=== PATIENT | male | born 1965 | race Caucasian/White ===

== ENCOUNTER 2024-05-05 06:28 | Day surgery (SDC) | payer OTHER ==
[~2024-05-05] VITALS: Ht 185.4 cm; Wt 113.4 kg
[2024-05-05 07:29] LABS: BASOPHILS # (AUTO) 0.1 K/uL (0.00-0.22); BASOPHILS % (AUTO) 0.7 % (0.0-2.0); EOSINOPHILS # (AUTO) 0.3 K/uL (0-0.4); EOSINOPHILS % (AUTO) 3.4 % (0.0-4.0); HEMATOCRIT 47.1 % (36-52); LYMPHOCYTES # (AUTO) 2.3 K/uL (2.0-11.5); LYMPHOCYTES % (AUTO) 28.8 % (20.5-51.1); MEAN CORPUSCULAR HEMOGLOBIN 31 pg (27-31); MEAN CORPUSCULAR HGB CONC 34 g/dL (33-37); MONOCYTES # (AUTO) 0.9 K/uL (0.8-1.0); MONOCYTES % (AUTO) 11.8 % (1.7-9.3); NEUTROPHILS # (AUTO) 4.4 K/uL (1.8-7.7); NEUTROPHILS % (AUTO) 55.3 % (42.2-75.2); PLATELET COUNT (AUTO) 249 K/uL (140-450); RED BLOOD CELL COUNT(AUTO) 5.18 MIL/uL (4.20-6.10); RED CELL DISTRIBUTION WIDTH 13.8 % (11.6-13.7); WHITE BLOOD COUNT (AUTO) 7.9 K/uL (4.8-10.8)
[2024-05-05 07:50] LABS: INR 1.11 (0.8-1.2); PARTIAL THROMBOPLASTIN TIME 24.9 secs (22-35.6); PROTHROMBIN TIME 11.6 secs (10.8-13.4)
[2024-05-05] MEDS ORDERED: fentaNYL citrate 0.05 MG/ML VIAL ONE (07:51)
[2024-05-05] MEDS ORDERED: KETOROLAC 30 MG/ML VIAL ONE (07:59)
[2024-05-05] MEDS: fentaNYL citrate 0.05 MG/ML VIAL IVP ONE (08:32)
[2024-05-05] MEDS: LIDOCAINE 2% 1000 MG/50 ML VIAL INJ ONE (08:33)
== END 2024-05-05 10:14 | disposition home or self-care (01) ==
LOC: MDS 06:28 → MMU 06:42 → MDS 10:14
PROVIDERS: ATTEND Internal Medicine Gastroenterology
DX: B18.2 Chronic viral hepatitis C (principal); I10 Essential (primary) hypertension; I48.91 Unspecified atrial fibrillation; Z79.899 Other long term (current) drug therapy; Z98.890 Other specified postprocedural states
CPT/HCPCS: 36415; 47000; 76942; 85025; 85610; 85730; J1885; J2003; J3010; Q0092